=== PATIENT | female | born 1965 | race Caucasian/White ===

== ENCOUNTER → 2023-05-14 07:28 | Outpatient (REF) | payer BC, SELFPAY | LOC: EMG 07:28 | PROVIDERS: ATTENDING PHYSICIAN Orthopaedic Surgery; FAMILY PHYSICIAN Family Medicine | DX: M79.642 Pain in left hand (principal); M79.641 Pain in right hand; R20.0 Anesthesia of skin | CPT/HCPCS: 95886; 95911 ==